=== PATIENT | female | born 1935 | race Caucasian/White ===

== ENCOUNTER → 2021-05-15 14:46 | Outpatient (BNVA) | payer MEDICARE, SELFPAY | PROVIDERS: Visit Provider Specialist | DX: G20 Parkinson's disease (principal) | CPT/HCPCS: 99204; 99205 ==

== ENCOUNTER → 2023-01-12 15:31 | Outpatient (BNVA) | payer MEDICARE, SELFPAY | PROVIDERS: PCP Family Medicine; Visit Provider Specialist | DX: G20 Parkinson's disease | CPT/HCPCS: 99215 ==